=== PATIENT | male | born 1975 | race Caucasian/White ===

== ENCOUNTER 2017-02-05 15:34 | Emergency (ER) | payer BC ==
[~2017-02-05] VITALS: Ht 167.6 cm; Wt 86.0 kg
[~2017-02-05 15:34] MED LIST: CIPR500T4 PO; HYDR-906 PO; PHEN-538 PO
[2017-02-05 15:38] VITALS: Ht 167.6 cm; Wt 86.0 kg
[2017-02-05] MEDS ORDERED: DOCU-144 PO (16:11)
[2017-02-05] MEDS ORDERED: HYDR25SU23 PR (16:11)
--- NOTE | 2017-02-05 16:17 | ERD ---
ER Documentation Chief Complaint Date/Time DATE: 02/05/17 TIME: 16:15 Chief Complaint Complains of rectal pain Hx of hemrrhoids HPI 41-year-old male presents with rectal pain. He has history of hemorrhoids that he has had for over 6 months. He has not seen primary care for this. He has not tried any medications for this. He denies any rectal bleeding. He denies abdominal pain, nausea vomiting or diarrhea. ROS All systems reviewed and are negative except as per history of present illness. Medications Home Meds Active Scripts Docusate Sodium* (Colace*) 100 Mg Capsule, 100 MG PO TID, #30 CAP Prov:MIKE JAY PA-C 02/05/17 Hydrocortisone Acetate (Anusol-Hc) 25 Mg Supp.rect, 1 SUPP CO BID Y for HEMORROID PAIN/ITCHING, #12 SUPP.RECT Prov:MIKE JAY PA-C 02/05/17 Phenazopyridine Hcl* (Pyridium*) 200 Mg Tab, 200 MG PO TID Y for URINARY PAIN, # 6 TAB Prov:GABRIELLE MARTÍNEZ, DENTURE CONT[employer] W[employer] SPECIALIST 06/15/16 Hydrocodone/Acetaminophen ([place] 5-325 Tablet) 1 Each Tablet, 1 TAB PO Q6H Y for PAIN, #7 TAB Prov:GABRIELLE MARTÍNEZ, DENTURE CONT[employer] W[employer] SPECIALIST 06/15/16 Ciprofloxacin Hcl* (Ciprofloxacin Hcl*) 500 Mg Tablet, 500 MG PO BID for 3 Days , TAB Prov:GABRIELLE MARTÍNEZ, DENTURE CONTOUR WIRE SPECIALIST 06/15/16 Allergies Allergies: Coded Allergies: No Known Allergy (Unverified , 02/05/17) PMhx/Soc Medical and Surgical Hx: pt denies Medical Hx, pt denies Surgical Hx Hx Cardiac Disorders: Yes (high blood pressure; cholesterol) Hx Psychiatric Problems: No Hx Miscellaneous Medical Probl: No Hx Alcohol Use: Yes Hx Substance Use: No Hx Tobacco Use: No Smoking Status: Never smoker FmHx Family History: No diabetes Physical Exam Vitals Vital Signs Date Time Temp Pulse Resp B/P Pulse Ox O2 Delivery O2 Flow Rate FiO2 02/05/17 15:38 98.3 62 20 137/84 98 Physical Exam General: well developed, well nourished, alert, nontoxic, no distress Head: normocephalic, atraumatic Neck: Supple, nontender, no lymphadenopathy, no midline tenderness Respiratory: Clear to auscaultation bilaterally, speaks in full sentences, no use of accesory muscles or labored breathing, no rales, ronchi, or wheezing Cardiovascular: RRR, No murmurs GI: soft, non tender, non distended, negative murphys sign, negative mcburneys point tenderness, no cva tenderness bilaterally, no rebound or guarding rectal: Nonthrombosed hemorrhoid, nonbleeding Procedures/MDM 41-year-old presents with hemorrhoids. He does have nonthrombosed hemorrhoids. Nonbleeding. He was given prescription for Colace and Anusol suppositories. Recommended he follow-up with his primary care doctor for possible outpatient referral to specialist for removal if his symptoms do not resolve. Recommended this patient follow up with her primary care doctor within 48 hours or return to the emergency room for any worsening of symptoms. However this time I do believe there is suitable for outpatient management. I answered all their questions and they agreed with the plan and were discharged home. Departure Diagnosis: Primary Impression: External hemorrhoid Condition: Stable Patient Instructions: Treating Hemorrhoids: Self-Care, Treating Hemorrhoids: Removal Additional Instructions: Llame al doctor LAURIE y reid ishaan ANGELES PARA DENTRO DE 1-2 FOWLER.Dgale a la secretaria que nosotros le instruimos hacer esta [place].Avise o llame si arango condicin se empeora antes de la ang[place]. Regresa aqui si peor o no mejor. MIKE JAY PA-C Feb 05, 2017 16:17
== END 2017-02-05 16:54 | disposition home or self-care (01) ==
LOC: FTE 15:34
DX: K64.4 Residual hemorrhoidal skin tags (principal)
CPT/HCPCS: 99283